=== PATIENT | male | born 1970 | race American Indian/Alaskan Native ===

== ENCOUNTER 2017-12-22 08:57 | Emergency (ER) | payer OTHER ==
[2017-12-22 09:28] VITALS: BMI 22.5
[2017-12-22 09:31] VITALS: BP 133/82; PULSE 75; RESP 16; TEMP 98; O2SAT 100
--- NOTE | 2017-12-22 10:19 | C.PDOC ---
History Of Present Illness 47-year-old male, presents to the emergency department with complaints of foreign body in ear. Patient reports he was using a Q-tip, and it got stuck in his ear five days ago. Patient went to see PMD, who was unable to remove, resulting in him coming to ED for further evaluation. Patient denies any pain or trauma. (Yu Combs) History Per: Patient History/Exam Limitations: None Onset/Duration Of Symptoms: Days Current Symptoms Are (Timing): Still Present Time Seen by Provider: 12/22/17 09:34 Chief Complaint (Nursing): ENT Problem Past Medical History Reviewed: Historical Data, Nursing Documentation, Vital Signs - Medical History PMH: HTN Family History: States: No Known Family Hx - Social History Hx Tobacco Use: No Hx Alcohol Use: No Hx Substance Use: No - Immunization History Hx Tetanus Toxoid Vaccination: No Hx Influenza Vaccination: No Hx Pneumococcal Vaccination: No Vital Signs: Last Vital Signs Temp 98.0 F 12/22/17 09:29 Pulse 75 12/22/17 09:29 Resp 16 12/22/17 09:29 BP 133/82 12/22/17 09:29 Pulse Ox 100 12/22/17 12:20 Review Of Systems Constitutional: Negative for: Fever ENT: Negative for: Ear Pain, Ear Discharge, Throat Pain, Throat Swelling Gastrointestinal: Negative for: Vomiting Neurological: Negative for: Weakness, Numbness, Headache, Dizziness Physical Exam - Physical Exam Appears: Non-toxic, No Acute Distress Skin: Warm, Dry, No Rash Head: Atraumatic, Normacephalic Eye(s): bilateral: Normal Inspection, EOMI Ear(s): Left: Other ((+) FB), Right: Normal Nose: Normal Oral Mucosa: Moist Lips: Normal Appearing Neck: Normal ROM, Supple Chest: Symmetrical Respiratory: No Accessory Muscle Use Extremity: Normal ROM, No Deformity, No Swelling Neurological/Psych: Oriented x3, Normal Speech ED Course And Treatment O2 Sat by Pulse Oximetry: 100 (RA) Pulse Ox Interpretation: Normal Progress Note: Removed foreign body from left ear with foreceps. No trauma to the ear canal, no erythema or bleeding. Patient will be discharged for outpatient f/u with PMD/ENT in 1-2 days. Disposition - Disposition Disposition Time: 10:18 - Disposition Referrals: Behin,Douglas, MD [Staff Provider] - Disposition: HOME/ ROUTINE Condition: STABLE Additional Instructions: Follow up with ENT in 1-2 days. Return tp ER if symptoms persist or worsen. Instructions: Removing Objects Stuck in the Ear Forms: [facility] (Swedish) - Clinical Impression Clinical Impression: FB ear - Scribe Statement The provider has reviewed the documentation as recorded by the Scribe (Cruz Pleitez) - Scribe Statement All medical record entries made by the Scribe were at my direction and personally dictated by me. I have reviewed the chart and agree that the record accurately reflects my personal performance of the history, physical exam, medical decision making, and the department course for this patient. I have also personally directed, reviewed, and agree with the discharge instructions and disposition. (Yu Combs)
== END 2017-12-22 10:22 | disposition home or self-care (01) ==
LOC: C.ER 08:57
DX: T16.2XXA Foreign body in left ear, initial encounter (principal); X58.XXXA Exposure to other specified factors, initial encounter